=== PATIENT | female | born 1955 | race Caucasian/White ===

== ENCOUNTER → 2020-11-06 14:15 | Outpatient (CLI) | payer MEDICARE, MEDICAID, SELFPAY ==
--- NOTE | ~2020-11-06 | XR_ITS ---
EXAMINATION: XR ankle RT min 3V, XR foot RT min 3V DATE: 11/06/2020 15:05 INDICATION: Right foot pain TECHNIQUE: 1. Anteroposterior, mortise, additional oblique and lateral view of the right ankle were obtained. 2. Dorsoplantar, two oblique and lateral views of the right foot were obtained. COMPARISON: None. FINDINGS: Multiple postoperative changes throughout the right foot. This includes old healed posterior calcanea l realignment osteotomy with fixation with a pair of lateral sided vadim. Midfoot arthrodesis invol ving the navicula and medial and mid cuneiforms with dorsal sided fixation with a plate with 4 pins. Osteotomies at the necks of the 2nd, 3rd and 5th metatarsals with pin fixations. Arthrodesis at the r ight 2nd -5th proximal interphalangeal joints. Alignment at the right foot and ankle remains near-sean tomic. No fracture. Mild polyarticular osteoarthritis in the mid and forefoot involving multiple tars al metatarsal, metatarsophalangeal and interphalangeal joints. No ankle joint effusion. Small plantar calcaneal spur. Diffuse soft tissue swelling about the foot and ankle most prominent about the later al malleolus. IMPRESSION: 1. Extensive postoperative changes at the right foot as detailed above. No acute osseous abnormality. 2. Mild polyarticular osteoarthritis in the fore and midfoot. Reviewed, dictated and finalized at location A. IMPRESSION: 1. Extensive postoperative changes at the right foot as detailed above. No acut e osseous abnormality. 2. Mild polyarticular osteoarthritis in the fore and midfoot.
== END ==
PROVIDERS: PCP Internal Medicine; Visit Provider Nurse Practitioner Adult Health
DX: M19.071 Primary osteoarthritis, right ankle and foot (principal)
CPT/HCPCS: 73610; 73630